=== PATIENT | female | born 2000 | race Caucasian/White ===

== ENCOUNTER 2021-12-20 19:58 | Inpatient (IN) ==
[2021-12-20 20:28] LABS: Basophils # (auto) 0.03 K/uL (0-0.2); Basophils % (auto) 0.3 %; Eosinophils # (auto) 0.04 K/uL (0-0.50); Eosinophils % (auto) 0.3 %; Immature Granulocytes # (auto) 0.04 K/uL (0.00-0.02); Immature Granulocytes % (auto) 0.3 %; Lymphocytes # (auto) 1.68 K/uL (1.2-3.4); Lymphocytes % (auto) 14.4 %; Mean Corpuscular Hemoglobin 26.7 pg (25.0-34.0); Mean Corpuscular Hgb Conc 32.9 g/dL (32.0-36.0); Mean Corpuscular Volume 81.2 fL (80.0-100.0); Monocytes # (auto) 1.15 K/uL (0.24-0.82); Monocytes % (auto) 9.9 %; Neutrophils # (auto) 8.73 K/uL (1.4-6.5); Neutrophils % (auto) 74.8 %; Platelet Count 341 K/uL (130-400); RDW Coefficient of Variation 13.3 % (11.5-14.5); RDW Standard Deviation 39.3 fL (36.4-46.3); White Blood Count 11.67 K/ul (4.8-10.8)
[2021-12-20] MEDS ORDERED: AMPICILLIN/SULBACTAM SOD 3,000 MG in 0.9 % SODIUM CHLORIDE 100 ML IV STA (20:28)
[2021-12-20] MEDS ORDERED: SODIUM CHLORIDE 0.9% 1000ML 2,000 ML IV ONE (20:28)
[2021-12-20] MEDS ORDERED: KETOROLAC TROMETHAMINE 15 MG/ML VIAL IV ONE (20:28)
[2021-12-20] MEDS ORDERED: dexAMETHasone**PF** 10 MG/ML VIAL IV ONE (20:29)
--- NOTE | 2021-12-20 20:33 | Emergency Department Note ---
Impression & Plan Dental caries, Dental abscess, Cellulitis of face, Swollen throat ED Provider Note NAME: ELIUD SMITH AGE: 21 SEX: U : 2000 ARRIVES VIA: Walk-In INFORMANT: Patient ED PROVIDER(S): Stephane Keller DO CHIEF COMPLAINT: left facial swelling HPI: Patient is a 21-year-old female who presents the ER for left lower jaw pain. This started 3 days ago. She had multiple dental infections but notes that this significantly worse. She was at [facility] yesterday and placed on penicillin. She has been taking that but the swelling has been getting worse. She saw dentist today who encouraged her to continue taking the antibiotics and set her up for an appointment in several weeks to have the teeth removed. Denies any fevers. Feels as though she has some swelling under the neck. No headache or change in vision. Pain is worse with palpation, eating, and drinking. It is an 8 out of 10. She admits to mild upset stomach secondary to NSAIDs that she is taking. No dysuria, urgency, or frequency. No other exacerbating or remitting factors. ROS: See above HPI for pertinent positives & negatives. A total of 10 systems reviewed and were otherwise negative. PAST MEDICAL HISTORY:See Below PAST SURGICAL HISTORY:See Below FAMILY HISTORY:See Below SOCIAL HISTORY:See Below HOME MEDICATIONS:See Below ALLERGIES:See Below VITALS:See Below PHYSICAL EXAMINATION: GENERAL: Sitting up in bed, alert, mild distress tearful EYE EXAM: normal conjunctiva. PERRL and EOM's grossly intact. OROPHARYNX: no exudate, no erythema, swelling of the left lower jaw from angle of the mandible anteriorly and tracking slightly under the jaw. Acute tenderness. No swelling under the tongue. NECK: supple, no nuchal rigidity, no adenopathy, non-tender LUNGS: Clear to auscultation. Normal chest wall mechanics HEART: no murmurs, S1 normal and S2 normal ABDOMEN: abdomen soft, non-tender, normo-active bowel sounds, no masses, no rebound or guarding. UPPER EXTREMITIES: upper extremities are grossly normal. LOWER EXTREMITIES: No pitting edema. NEURO EXAM: Normal sensorium, cranial nerves II-XII grossly intact, normal speech, no gross weakness of arms, no gross weakness of legs. MEDICAL DECISION MAKING: Patient is a 19-year-old female who presents ER for left dental/facial pain with swelling. IV was established blood work was obtained. Labs show mild leukocytosis 11,000. No significant anemia. BMP along LFTs bilirubin was unremarkable. COVID was negative. CT of the face shows facial cellulitis with a periapical abscess in the tooth. Patient has been on antibiotics. Swelling is getting worse. It is tracking down to the neck. CT. Patient was given steroids, IV fluids, IV Toradol as well as IV Unasyn. She was updated bedside. Discussed with Dr. Marco Taylor for further evaluation and admission. Triage Nursing notes reviewed. Limited review of prior medical records performed Vital Signs: reviewed and remarkable for no significant abnormalities Differential diagnosis: Differential diagnoses includes but is not limited to dental fracture, dental c arries, and dental abscess. ER treatment provided: See below Diagnostics interpreted by me: ECG: none Cardiac Monitoring: An order was placed for continuous cardiac monitoring. The monitor shows a rate of 101 with sinus rhythm. Laboratory studies: As stated above and show below. Imaging studies: CT of the face as described above Consultation(s): Discussed with Marco Taylor for further evaluation Procedures: none Critical Care: None Past Med/Surg History Social History Smoking Status: Current every day smoker Tobacco Type: Cigarettes and E-cigarettes / Vaping Preferred Language: Welsh Feels Safe at Home: Yes Allergies Allergies Allergy/AdvReac Type Severity Reaction Status Date / Time No Known Allergies Allergy Unverified 12/20/21 22:10 Home Meds Home Medications Medication Instructions Recorded Confirmed cholecalciferol (vitamin D3) 25 0 mcg PO DAILY 12/20/21 12/20/21 mcg (1,000 unit) capsule (Vitamin D3) ferrous sulfate 325 mg (65 mg 0 mg PO DAILY 12/20/21 12/20/21 iron) tablet (iron) magnesium 200 mg tablet 0 mg PO DAILY 12/20/21 12/20/21 naproxen sodium 550 mg tablet 550 mg PO BID PRN Pain 12/20/21 12/20/21 penicillin V potassium 500 mg 500 mg PO TID 12/20/21 12/20/21 tablet sertraline 50 mg tablet (Zoloft) 50 mg PO DAILY 12/20/21 12/20/21 zinc 25 mg tablet 0 mg PO DAILY 12/20/21 12/20/21 Results & Data (ED) Vital Signs Vital Signs - 24 hr 12/20/21 20:03 12/20/21 21:10 12/20/21 23:02 Temperature 37.1 C Temperature Source Temporal Artery Scan Pulse Rate 142 Pulse Rate [Finger] 95 H 101 H Respiratory Rate 20 18 20 Respiratory Effort / Characteristics Non-Labored Spontaneous Non-Labored Spontaneous Non-Labored Spontaneous Respiratory Depth Normal Normal Normal Blood Pressure 135/91 Blood Pressure [Left Arm] 112/73 117/79 Blood Pressure Mean 105 Blood Pressure Mean [Left Arm] 86 91 Blood Pressure Position [Left Arm] Sitting Pulse Oximetry 97 98 97 Oxygen Delivery Method Room Air Room Air Room Air Sepsis Recent Fever Within 48 Hours Yes Sepsis New/Unexplained Change in Mental Status N/A Sepsis Action Taken by Nursing No Action Required Laboratory Data Result diagrams: 12/20/21 20:13 12/20/21 20:13 Lab Results 12/20/21 12/20/21 12/20/21 Range/Units 20:13 20:13 22:14 WBC 11.67 H (4.8-10.8) K/ul RBC 4.42 (3.93-6.08) M/uL Hgb 11.8 L (12.0-18.0) g/dl Hct 35.9 (34.1-51.0) % MCV 81.2 (80.0-100.0) fL MCH 26.7 (25.0-34.0) pg MCHC 32.9 (32.0-36.0) g/dL RDW Std Deviation 39.3 (36.4-46.3) fL RDW Coeff of [place] 13.3 (11.5-14.5) % Plt Count 341 (130-400) K/uL MPV 9.8 (9.4-12.4) fL Immature Gran % (Auto) 0.3 % Neut % (Auto) 74.8 % Lymph % (Auto) 14.4 % [place] % (Auto) 9.9 % Eos % (Auto) 0.3 % Baso % (Auto) 0.3 % Neut # (Auto) 8.73 H (1.4-6.5) K/uL Lymph # (Auto) 1.68 (1.2-3.4) K/uL [place] # (Auto) 1.15 H (0.24-0.82) K/uL Eos # (Auto) 0.04 (0-0.50) K/uL Baso # (Auto) 0.03 (0-0.2) K/uL Immature Gran # (Auto) 0.04 H (0.00-0.02) K/uL Sodium 135 L (136-145) mmol/L Potassium 3.9 (3.5-5.1) mmol/L Chloride 104 (98-107) mmol/L Carbon Dioxide 21 (21-32) mmol/L Anion Gap 10 (3-11) BUN 9 (6-23) mg/dl Creatinine 0.66 (0.6-1.2) mg/dl Est Cr Clr Drug Dosing 130.8 ml/min Est GFR ( Amer) 145.3 ml/min Est GFR (Non-Af Amer) 125.4 ml/min BUN/Creatinine Ratio 13.6 (10-20) Glucose 116 H (70-99(Fasting)) mg/dl Calcium 9.5 (8.5-10.1) mg/dl Total Bilirubin 0.5 (0.2-1.0) mg/dl AST 13 (13-39) U/L ALT 13 (7-52) U/L Alkaline Phosphatase 63 (34-104) U/L Total Protein 8.2 (6.0-8.3) gm/dl Albumin 4.5 (3.4-5.0) gm/dl Globulin 3.7 (2.5-4.0) gm/dl Albumin/Globulin Ratio 1.2 (0.9-2) SARS-CoV-2, RNA, NAAT NEGATIVE (NEGATIVE) Administered Medications Discontinued Medications Dexamethasone Sodium Phosphate (DexamethasonePf 10 Mg/Ml Vial) 10 mg IV NOW ONE Stop: 12/20/21 20:30 Last Admin: 12/20/21 20:36 Dose: 10 mg Documented By: DELROY Sodium Chloride (Nss 1000ml) 2,000 mls @ 999 mls/hr IV .Q2H1M ONE Stop: 12/20/21 22:28 Last Infusion: 12/20/21 23:04 Dose: 0 mls/hr Documented By: Admin: 12/20/21 20:35 Dose: 999 mls/hr Documented By: DELROY Ampicillin Sodium/Sulbactam Sodium 3,000 mg/ Sodium Chloride 108 mls @ 200 mls/hr IV NOW STA; Protocol Stop: 12/20/21 21:00 Last Infusion: 12/20/21 21:20 Dose: 0 mls/hr Documented By: Admin: 12/20/21 20:51 Dose: 200 mls/hr Documented By: DELROY Ioversol (Optiray 350 100ml) 83 ml IV ONCE ONE Stop: 12/20/21 20:53 Last Admin: 12/20/21 20:52 Dose: 83 ml Documented By: JUAN CARLOS Ketorolac Tromethamine (Ketorolac Tromethamine 15 Mg/Ml Vial) 15 mg IV NOW ONE Stop: 12/20/21 20:29 Last Admin: 12/20/21 20:36 Dose: 15 mg Documented By: DELROY Imaging Data Radiologist's Impression: Soft Tissue Neck CT 12/20/21 20:28 CT SCAN OF THE NECK WITH IV CONTRAST CLINICAL HISTORY: Left facial pain radiating into the neck. Jaw swelling. COMPARISON STUDY: No priors. TECHNIQUE: Following the IV administration of 83 cc of Optiray 350, CT scan of the soft tissues of the neck was performed from the skull base to the upper chest. Images are reviewed in the axial, sagittal, and coronal planes. IV contrast was administered without complication. A dose lowering technique was utilized adhering to the principles of ALARA. CT DOSE: 552.59 mGy.cm FINDINGS: Pharynx: The nasopharynx, oropharynx, and laryngeal pharynx are normal in appe arance. The pharyngeal airway is widely patent. There is no evidence of mass lesion. The vocal cords are symmetric. The parapharyngeal fat is well maintained. The prevertebral/retropharyngeal soft tissues are within normal limits. The epiglottis is normal. Lymphadenopathy: Prominent left cervical chain lymph nodes are likely reactive Thyroid: Normal in size and attenuation. Salivary glands: The parotid and submandibular glands are within normal limits. Brain parenchyma: The visualized brain parenchyma at the skull base is normal in appearance. Vascular structures: Unremarkable. Skeletal structures: Imaged portions of the calvarium at the skull base are within normal limits. The cervical spine appears intact. Sinuses and mastoids: The paranasal sinuses are clear. The mastoid air cells are well pneumatized. Orbits: The bony limits are intact. Orbital contents are normal as visualized. Lung apices: Visualized apical lung parenchyma is clear. Dentition: There are large dental caries involving the bilateral mandibular molars. A large apical lucency is seen involving the most posterior left mandibular molar. There is significant superficial and deep soft tissue inflammation seen overlying the left aspect of the mandible consistent with cellulitis. This extends inferiorly into the upper neck. No organized fluid collection is seen to indicate abscess. IMPRESSION: 1. Periodontal disease as above. Follow-up with dentistry is recommended. 2. There is evidence of left facial cellulitis. No organized fluid collection is seen to indicate abscess. 3. Prominent left cervical chain lymph nodes are likely reactive. ACT 112: Negative or not required by law. Electronically signed by: Fahad Wren M.D. 12/20/2021 9:04 PM Discharge Plan Visit Data Chief Complaint: Dental/Oral Stated Complaint: ABCESS IN MOUTH ED Provider: Stephane Keller Discharge Problem: Dental caries, Dental abscess, Cellulitis of face, Swollen throat Forms Stand Alone Forms: [facility] Prescriptions Prescriptions: No Action penicillin V potassium 500 mg tablet 500 mg PO TID naproxen sodium 550 mg tablet 550 mg PO BID PRN (Reason: Pain) ferrous sulfate [iron] 325 mg (65 mg iron) Tablet 0 mg PO DAILY zinc 25 mg Tablet 0 mg PO DAILY sertraline [Zoloft] 50 mg Tablet 50 mg PO DAILY cholecalciferol (vitamin D3) [Vitamin D3] 25 mcg (1,000 unit) Capsule 0 mcg PO DAILY magnesium 200 mg Tablet 0 mg PO DAILY Referrals Referrals: PCP,NO [Physician] -
[2021-12-20 20:47] LABS: Albumin Globulin Ratio 1.2 (0.9-2); Albumin Level 4.5 gm/dl (3.4-5.0); BUN Creatinine Ratio 13.6 (10-20); Bilirubin,Total 0.5 mg/dl (0.2-1.0); Calcium 9.5 mg/dl (8.5-10.1); Creatinine Clr Calc Pharmacy 130.8 ml/min; Est GFR (African American) 145.3 ml/min; Est GFR (Non-African American) 125.4 ml/min; Globulin 3.7 gm/dl (2.5-4.0); Potassium 3.9 mmol/L (3.5-5.1); Total Protein 8.2 gm/dl (6.0-8.3)
[2021-12-20] MEDS ORDERED: OPTIRAY 350 100ml IV ONE (20:52)
--- NOTE | 2021-12-20 21:07 | CT Scan Report ---
CT SCAN OF THE NECK WITH IV CONTRAST CLINICAL HISTORY: Left facial pain radiating into the neck. Jaw swelling. COMPARISON STUDY: No priors. TECHNIQUE: Following the IV administration of 83 cc of Optiray 350, CT scan of the soft tissues of th e neck was performed from the skull base to the upper chest. Images are reviewed in the axial, sagitt al, and coronal planes. IV contrast was administered without complication. A dose lowering techniqu e was utilized adhering to the principles of ALARA. CT DOSE: 552.59 mGy.cm FINDINGS: Pharynx: The nasopharynx, oropharynx, and laryngeal pharynx are normal in appearance. The pharyngeal airway is widely patent. There is no evidence of mass lesion. The vocal cords are symmetric. The para pharyngeal fat is well maintained. The prevertebral/retropharyngeal soft tissues are within normal li mits. The epiglottis is normal. Lymphadenopathy: Prominent left cervical chain lymph nodes are likely reactive Thyroid: Normal in size and attenuation. Salivary glands: The parotid and submandibular glands are within normal limits. Brain parenchyma: The visualized brain parenchyma at the skull base is normal in appearance. Vascular structures: Unremarkable. Skeletal structures: Imaged portions of the calvarium at the skull base are within normal limits. The cervical spine appears intact. Sinuses and mastoids: The paranasal sinuses are clear. The mastoid air cells are well pneumatized. Orbits: The bony limits are intact. Orbital contents are normal as visualized. Lung apices: Visualized apical lung parenchyma is clear. Dentition: There are large dental caries involving the bilateral mandibular molars. A large apical cency is seen involving the most posterior left mandibular molar. There is significant superficial an d deep soft tissue inflammation seen overlying the left aspect of the mandible consistent with cellul itis. This extends inferiorly into the upper neck. No organized fluid collection is seen to indicate abscess. IMPRESSION: 1. Periodontal disease as above. Follow-up with dentistry is recommended. 2. There is evidence of left facial cellulitis. No organized fluid collection is seen to indicate abs cess. 3. Prominent left cervical chain lymph nodes are likely reactive. ACT 112: Negative or not required by law. Electronically signed by: Fahad Wren M.D. 12/20/2021 9:04 PM
--- NOTE | 2021-12-20 23:38 | History & Physical Report ---
Date of Service December 20, 2021 Assessment & Plan (1) Cellulitis of face: Plan: 21 y/o female w/ self-reported PMHx of IBS, mild autism spectrum disorder, anxiety, and enamel hypoplasia who presents with left lower tooth infection w/ resultant facial cellulitis. - continue IV unasyn - NPO. Maintenance IV fluids - s/p 1 dose of Decadron; will not continue - consult OMFS - IV tylenol for pain, avoid nsaids (2) Dental caries: Plan: - outpatient dental f/u recommended (3) Anxiety: Plan: - hold home Zoloft while NPO (4) Epigastric abdominal pain: Plan: - likely 2/2 max dose nsaids on empty stomach x several days - given short duration of the use, less likely from ulcer - IV Protonix 40 daily Plan NPO. Maintenance fluids. scds full code med/surg History of Present Illness Chief Complaint: left facial swelling and pain Primary Care Provider: [facility] [place] 21 y/o female w/ self-reported PMHx of IBS, mild autism spectrum disorder, anxiety, and enamel hypoplasia who presents with left lower jaw pain. She has had poor dental hygiene most of her life, but has started seeing the hygeinist in the past 2 years. She previously did not floss or brush her teeth regularly, but has in the past year. She states that she is from the and went through the public dental system and due to delays has not yet had her dental problems treated.. She has had 2 prior infections in the same left lower posterior tooth and has been on waitlist for surgery. She states that her wisdom teeth are also impacted. Her acute symptoms of jaw and dental pain of that tooth started 3 days ago. She saw [facility] and [facility] this morning and was prescribed penicillin. She was told there might be possible abscess. Her symptoms significantly worsened this afternoon so she went to the ED. She has had more notable subjective fever (had milder on previous days) and odynophagia today. Denies issues w/ secretions. She has been taking max dose tylenol and ibuprofen (3600mg daily) for the past 3 days. She has also developed some epigastric abd pain that she attributes to taking the nsaids on an empty stomach. ED course: Unasyn, dexamethasone 10mg IV, toradol 15mg IV. NSS 2L. wbc 11.67. Na 135. covid neg. ct soft tissue neck showing peridontal disease, left facial cellulitis (w/o abscess) and prominent left cervical chain lymph nodes . Vitals reviewed. HR 101. afebrile. Allergies Allergy/AdvReac Type Severity Reaction Status Date / Time No Known Allergies Allergy Unverified 12/20/21 22:10 Home Medications Medication Instructions Recorded Confirmed Type cholecalciferol (vitamin D3) 25 0 mcg PO DAILY 12/20/21 12/20/21 History mcg (1,000 unit) capsule (Vitamin D3) ferrous sulfate 325 mg (65 mg 0 mg PO DAILY 12/20/21 12/20/21 History iron) tablet (iron) magnesium 200 mg tablet 0 mg PO DAILY 12/20/21 12/20/21 History naproxen sodium 550 mg tablet 550 mg PO BID PRN Pain 12/20/21 12/20/21 History penicillin V potassium 500 mg 500 mg PO TID 12/20/21 12/20/21 History tablet sertraline 50 mg tablet (Zoloft) 50 mg PO DAILY 12/20/21 12/20/21 History zinc 25 mg tablet 0 mg PO DAILY 12/20/21 12/20/21 History Past Med/Surg History Social History Smoking Status: Never smoker Tobacco Type: Cigarettes and E-cigarettes / Vaping Second Hand Exposure: No; Do You Dip or Chew Tobacco: No; Hx Alcohol Use: Yes Alcohol type: beer and wine Hx Substance Use: No Preferred Language: Maltese Communication Ability: Effective 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 NAD. Cooperative. Conversing. HEENT: Atraumatic, normocephalic. EOMI. Left lower backmost tooth appears decayed. Poor dentition; though grossly, other teeth did not appear poor in health. + left jaw swelling, mild ttp. Pulm: CTAB. -wheezes, -rales, -rhonchi. No respiratory distress. Cardiac: Mildly tachycardic rate, -mrg. Abdominal: Nondistended, soft. Integ: Warm, dry, intact. Results & Data Results & Data ([facility]) Vital Signs (Past 12 Hours) Vital Signs Temp Pulse Pulse Resp BP BP Pulse Ox 12/20/21 23:02 101 H 20 117/79 97 12/20/21 21:10 95 H 18 112/73 98 12/20/21 20:03 37.1 C 142 20 135/91 97 O2 Del Method 12/20/21 23:02 Room Air 12/20/21 21:10 Room Air 12/20/21 20:03 Room Air Laboratory Results Cardiac Enzymes 12/20/21 Range/Units 20:13 AST 13 (13-39) U/L CBC 12/20/21 Range/Units 20:13 WBC 11.67 H (4.8-10.8) K/ul RBC 4.42 (3.93-6.08) M/uL Hgb 11.8 L (12.0-18.0) g/dl Hct 35.9 (34.1-51.0) % Plt Count 341 (130-400) K/uL Neut # (Auto) 8.73 H (1.4-6.5) K/uL Lymph # (Auto) 1.68 (1.2-3.4) K/uL [place] # (Auto) 1.15 H (0.24-0.82) K/uL Eos # (Auto) 0.04 (0-0.50) K/uL Baso # (Auto) 0.03 (0-0.2) K/uL Comprehensive Metabolic Panel 12/20/21 Range/Units 20:13 Sodium 135 L (136-145) mmol/L Potassium 3.9 (3.5-5.1) mmol/L Chloride 104 (98-107) mmol/L Carbon Dioxide 21 (21-32) mmol/L BUN 9 (6-23) mg/dl Creatinine 0.66 (0.6-1.2) mg/dl Glucose 116 H (70-99(Fasting)) mg/dl Calcium 9.5 (8.5-10.1) mg/dl AST 13 (13-39) U/L ALT 13 (7-52) U/L Alkaline Phosphatase 63 (34-104) U/L Total Protein 8.2 (6.0-8.3) gm/dl Albumin 4.5 (3.4-5.0) gm/dl Intake and Output 12/20/21 12/20/21 12/21/21 14:59 22:59 06:59 Intake Total 2107 Balance 2107 Intake: IV 108 2107 Ampicillin/Sulbactam Sod 3,000 108 / 108 mg In 0.9 % Sodium Chloride 100 ml @ 200 mls/hr IV NOW STA Rx# :[id number] Sodium Chloride 0.9% 1000ML 2, 2000 / 1999 000 ml @ 999 mls/hr IV .Q2H1M ONE Rx#:[id number] Other: Weight 83.2 kg Weight Measurement Method Chair Scale Patient Weight 12/21/21 06:59 Weight 83.2 kg Diagnostic Findings Soft Tissue Neck CT 12/20/21 20:28 CT SCAN OF THE NECK WITH IV CONTRAST CLINICAL HISTORY: Left facial pain radiating into the neck. Jaw swelling. COMPARISON STUDY: No priors. TECHNIQUE: Following the IV administration of 83 cc of Optiray 350, CT scan of the soft tissues of the neck was performed from the skull base to the upper chest. Images are reviewed in the axial, sagittal, and coronal planes. IV cont rast was administered without complication. A dose lowering technique was utilized adhering to the principles of ALARA. CT DOSE: 552.59 mGy.cm FINDINGS: Pharynx: The nasopharynx, oropharynx, and laryngeal pharynx are normal in appearance. The pharyngeal airway is widely patent. There is no evidence of mass lesion. The vocal cords are symmetric. The parapharyngeal fat is well maintained. The prevertebral/retropharyngeal soft tissues are within normal limits. The epiglottis is normal. Lymphadenopathy: Prominent left cervical chain lymph nodes are likely reactive Thyroid: Normal in size and attenuation. Salivary glands: The parotid and submandibular glands are within normal limits. Brain parenchyma: The visualized brain parenchyma at the skull base is normal in appearance. Vascular structures: Unremarkable. Skeletal structures: Imaged portions of the calvarium at the skull base are within normal limits. The cervical spine appears intact. Sinuses and mastoids: The paranasal sinuses are clear. The mastoid air cells are well pneumatized. Orbits: The bony limits are intact. Orbital contents are normal as visualized. Lung apices: Visualized apical lung parenchyma is clear. Dentition: There are large dental caries involving the bilateral mandibular molars. A large apical lucency is seen involving the most posterior left mandibular molar. There is significant superficial and deep soft tissue inflammation seen overlying the left aspect of the mandible consistent with cellulitis. This extends inferiorly into the upper neck. No organized fluid collection is seen to indicate abscess. IMPRESSION: 1. Periodontal disease as above. Follow-up with dentistry is recommended. 2. There is evidence of left facial cellulitis. No organized fluid collection is seen to indicate abscess. 3. Prominent left cervical chain lymph nodes are likely reactive. ACT 112: Negative or not required by law. Electronically signed by: Fahad Wren M.D. 12/20/2021 9:04 PM Code Status & VTE Plan Code Status full VTE Prophylaxis Plan VTE Prophylaxis will be ordered: Yes Supervising Physician Co-Signing Physician Notes Attending addendum: I have physically seen this patient, have supervised the medical residents activities, and agree with the H&P unless as otherwise noted. Assessment and Plan: Cellulitis of face/periodontal disease- Continue Unasyn 3 g IV every 6 hours Status post dexamethasone 10 mg IV from the ED Acetaminophen with 1000 milligrams IV every 8 hours as needed for mild pain or fever Will need follow-up with maxillofacial surgery Remaining orders and notations as noted Resident Activity Tracking Resident Involvement: Resident Care Provided Care Provided: Adult Hospital Medicine
[2021-12-21] MEDS ORDERED: ACETAMINOPHEN 1,000 MG/100 ML VIAL IV PRN (01:06)
[2021-12-21] MEDS ORDERED: ONDANSETRON INJ 2 MG/ML 2 ML VIAL IV PRN (01:06)
[2021-12-21] MEDS: SODIUM CHLORIDE 0.9% 1000ML 1,000 ML IV SCH ×3 (01:15→16:42)
[2021-12-21] MEDS: PANTOprazole 40 MG in SYRINGE 0 ML IV SCH (02:00)
[2021-12-21] MEDS: AMPICILLIN/SULBACTAM SOD 3,000 MG in 0.9 % SODIUM CHLORIDE 100 ML IV SCH ×4 (03:02→21:33)
[2021-12-21 08:02] LABS: Basophils # (auto) 0.01 K/uL (0-0.2); Basophils % (auto) 0.1 %; Hematocrit (blood only) 34.2 % (34.1-44.9); Hemoglobin 11.2 g/dl (12.0-16.0); Immature Granulocytes # (auto) 0.07 K/uL (0.00-0.02); Immature Granulocytes % (auto) 0.7 %; Lymphocytes % (auto) 8.9 %; Mean Corpuscular Hemoglobin 26.9 pg (25.0-34.0); Mean Corpuscular Hgb Conc 32.7 g/dL (32.0-36.0); Mean Platelet Volume 10.2 fL (9.4-12.3); Monocytes # (auto) 0.32 K/uL (0.24-0.82); Monocytes % (auto) 3.2 %; Neutrophils # (auto) 8.81 K/uL (1.4-6.5); Neutrophils % (auto) 87.1 %; Platelet Count 328 K/uL (130-400); RDW Coefficient of Variation 13.5 % (11.5-14.5); RDW Standard Deviation 40.2 fL (36.4-46.3); Red Blood Count 4.17 M/uL (3.93-5.22); White Blood Count 10.11 K/ul (4.8-10.8)
[2021-12-21 08:35] LABS: Alanine Aminotransferase 13 U/L (7-52); Albumin Globulin Ratio 1.1 (0.9-2); Albumin Level 3.9 gm/dl (3.4-5.0); Alkaline Phosphatase 54 U/L (34-104); Anion Gap 7 (3-11); Aspartate Aminotransferase 12 U/L (13-39); BUN Creatinine Ratio 17.3 (10-20); Bilirubin,Total 0.4 mg/dl (0.2-1.0); Blood Urea Nitrogen 9 mg/dl (6-23); Calcium 9.1 mg/dl (8.5-10.1); Carbon Dioxide 23 mmol/L (21-32); Chloride 109 mmol/L (98-107); Creatinine Clr Calc Pharmacy 166.4 ml/min; Est GFR (African American) > 150.0 ml/min; Est GFR (Non-African American) 135.6 ml/min; Globulin 3.5 gm/dl (2.5-4.0); Glucose 110 mg/dl (70-99(Fasting)); Magnesium 1.9 mg/dl (1.7-2.4); Sodium 139 mmol/L (136-145); Total Protein 7.4 gm/dl (6.0-8.3)
--- NOTE | 2021-12-21 10:40 | Hospitalist Progress Note ---
Date of Service December 21, 2021 Assessment & Plan (1) Cellulitis of face: Plan: Attending: Dr. Flanagan Impression: 21 y/o female w/ self-reported PMHx of IBS, mild autism spectrum disorder, anxiety, and enamel hypoplasia who presents with left lower tooth infection w/ resultant facial cellulitis. - continue IV unasyn for another day. Anticipate discharge tomorrow with extraction of teeth per outside dentist in about 2 weeks -Advance diet as tolerated - s/p 1 dose of Decadron on admission. -Seen by Dr. Almeida from oromaxillary facial surgery. Offered option of extraction in the OR. Patient elects to follow through with outpatient extraction. -P.o. Tylenol for pain. (2) Dental caries: Plan: - outpatient dental f/u as previously established (3) Anxiety: Plan: - Patient reports that she has held Zoloft for several days due to pain and difficulty swallowing - Will resume Zoloft 50 mg p.o. daily today (4) Epigastric abdominal pain: Plan: - Resolved - likely 2/2 max dose nsaids on empty stomach x several days - given short duration of the use, less likely from ulcer - IV Protonix 40 daily Plan Resume diet as tolerated scds full code Anticipate discharge tomorrow on oral antibiotics Follow-up with outpatient dentistry as previous arranged for tooth extraction Admission and Anticipated Discharge Date Admission Date: December 20, 2021 Subjective Attending: Dr. Flanagan This is a 21-year-old female that presents with facial cellulitis possibly secondary to left lower tooth infection. She was seen by [facility] yesterday morning and was prescribed penicillin. Pain worsened significantly and patient presented to the emergency department for evaluation. Patient was taking 2400 mg of Tylenol as well as 3600 mg of ibuprofen daily for the past 3 days and now presents with gastritis. White count slightly elevated 11.67 yesterday and now 10.11. Electrolytes are balanced. There is no procalcitonin on record. CT scan of the soft tissue of the neck reveals periodontal disease with no evidence of abscess. There is also facial cellulitis on the left with no organized fluid collection. Prominent left cervical chain lymph nodes are likely reactive. Oral surgery has been consulted and comment is pending. Patient feels much better today. Edema is improving. No evidence of erythema on the face. Currently doing well with Unasyn. No fever or chills. Able swallow today without difficulty. Requesting advance diet Review of Systems Review of Systems: A total of 10 systems was reviewed and is negative other than as listed in the HPI Physical Exam Physical Exam: GENERAL : No acute distress EYES: No icterus, gaze conjugate NOSE: No evidence of epistaxis MOUTH: No lesions or candidiasis. Still some tenderness to the left cheek. NECK: Supple LUNGS: CTA B/L, no wheezes, rales or rhonchi HEART: Regular, rate controlled ABDOMEN: Soft, NT, ND, BS Present EXTREMITIES: No LE edema, pedal pulses intact NEURO: A&OX3 Results & Data Results & Data ([facility]) Vital Signs (Past 12 Hours) Vital Signs Temp Pulse Resp BP Pulse Ox O2 Del Method 12/21/21 09:10 Room Air 12/21/21 08:00 36.9 C 80 18 119/81 97 Room Air 12/21/21 01:04 Room Air 12/21/21 01:04 37.1 C 98 H 20 119/78 96 Room Air 12/21/21 00:29 98 H 20 120/83 96 Room Air 12/20/21 23:02 101 H 20 117/79 97 Room Air Critical Care Results & Data Vital Signs (Past 12 Hours) Vital Signs Temp Pulse Resp BP Pulse Ox O2 Del Method 12/21/21 09:10 Room Air 12/21/21 08:00 36.9 C 80 18 119/81 97 Room Air 12/21/21 01:04 Room Air 12/21/21 01:04 37.1 C 98 H 20 119/78 96 Room Air 12/21/21 00:29 98 H 20 120/83 96 Room Air 12/20/21 23:02 101 H 20 117/79 97 Room Air Lab & Micro Results (Past 24 Hours) RBC 4.17 M/uL (3.93-5.22) 12/21/21 WBC 10.11 K/ul (4.8-10.8) 12/21/21 Hgb 11.2 g/dl (12.0-16.0) L 12/21/21 Hct 34.2 % (34.1-44.9) 12/21/21 MCV 82.0 fL (80.0-100.0) 12/21/21 MCH 26.9 pg (25.0-34.0) 12/21/21 MCHC 32.7 g/dL (32.0-36.0) 12/21/21 RDW Standard Deviation 40.2 fL (36.4-46.3) 12/21/21 RDW Coefficient of Variation 13.5 % (11.5-14.5) 12/21/21 Plt Count 328 K/uL (130-400) 12/21/21 MPV 10.2 fL (9.4-12.3) 12/21/21 Neutrophils (%) (Auto) 87.1 % 12/21/21 Lymphocytes (%) (Auto) 8.9 % 12/21/21 Monocytes # (Auto) 0.32 K/uL (0.24-0.82) 12/21/21 Eosinophils # (Auto) 0.00 K/uL (0-0.50) 12/21/21 Immature Granulocyte % (Auto) 0.7 % 12/21/21 Neutrophils # (Auto) 8.81 K/uL (1.4-6.5) H 12/21/21 Lymphocytes # (Auto) 0.90 K/uL (1.2-3.4) L 12/21/21 Monocytes # (Auto) 0.32 K/uL (0.24-0.82) 12/21/21 Eosinophils # (Auto) 0.00 K/uL (0-0.50) 12/21/21 Basophils # (Auto) 0.01 K/uL (0-0.2) 12/21/21 Immature Granulocyte # (Auto) 0.07 K/uL (0.00-0.02) H 12/21 Na 139 mmol/L (136-145) 12/21/21 K 4.0 mmol/L (3.5-5.1) 12/21/21 Cl 109 mmol/L (98-107) H 12/21/21 CO2 23 mmol/L (21-32) 12/21/21 Anion Gap 7 (3-11) 12/21/21 BUN 9 mg/dl (6-23) 12/21/21 Creatinine 0.52 mg/dl (0.6-1.2) L 12/21/21 Estimated GFR ( Amer) > 150.0 ml/min 12/21/21 Estimated GFR (Non-Af Amer) 135.6 ml/min 12/21/21 BUN/Creatinine Ratio 17.3 (10-20) 12/21/21 Glu 110 mg/dl (70-99(Fasting)) H 12/21/21 Ca 9.1 mg/dl (8.5-10.1) 12/21/21 Total Bilirubin 0.4 mg/dl (0.2-1.0) 12/21/21 AST 12 U/L (13-39) L 12/21/21 ALT 13 U/L (7-52) 12/21/21 Alkaline Phosphatase 54 U/L (34-104) 12/21/21 TP 7.4 gm/dl (6.0-8.3) 12/21/21 Albumin 3.9 gm/dl (3.4-5.0) 12/21/21 Globulin 3.5 gm/dl (2.5-4.0) 12/21/21 Albumin/Globulin Ratio 1.1 (0.9-2) 12/21/21 Mg 1.9 mg/dl (1.7-2.4) 12/21/21 07:08 Calcium Level 9.1 mg/dl (8.5-10.1) 12/21/21 07:08 Diagnostic Findings (Past 24 Hours) Soft Tissue Neck CT 12/20/21 20:28 CT SCAN OF THE NECK WITH IV CONTRAST CLINICAL HISTORY: Left facial pain radiating into the neck. Jaw swelling. COMPARISON STUDY: No priors. TECHNIQUE: Following the IV administration of 83 cc of Optiray 350, CT scan of the soft tissues of the neck was performed from the skull base to the upper chest. Images are reviewed in the axial, sagittal, and coronal planes. IV contrast was administered without complication. A dose lowering technique was utilized adhering to the principles of ALARA. CT DOSE: 552.59 mGy.cm FINDINGS: Pharynx: The nasopharynx, oropharynx, and laryngeal pharynx are normal in appea davidson. The pharyngeal airway is widely patent. There is no evidence of mass lesion. The vocal cords are symmetric. The parapharyngeal fat is well maintained. The prevertebral/retropharyngeal soft tissues are within normal limits. The epiglottis is normal. Lymphadenopathy: Prominent left cervical chain lymph nodes are likely reactive Thyroid: Normal in size and attenuation. Salivary glands: The parotid and submandibular glands are within normal limits. Brain parenchyma: The visualized brain parenchyma at the skull base is normal in appearance. Vascular structures: Unremarkable. Skeletal structures: Imaged portions of the calvarium at the skull base are within normal limits. The cervical spine appears intact. Sinuses and mastoids: The paranasal sinuses are clear. The mastoid air cells are well pneumatized. Orbits: The bony limits are intact. Orbital contents are normal as visualized. Lung apices: Visualized apical lung parenchyma is clear. Dentition: There are large dental caries involving the bilateral mandibular molars. A large apical lucency is seen involving the most posterior left mandibular molar. There is significant superficial and deep soft tissue inflammation seen overlying the left aspect of the mandible consistent with cellulitis. This extends inferiorly into the upper neck. No organized fluid collection is seen to indicate abscess. IMPRESSION: 1. Periodontal disease as above. Follow-up with dentistry is recommended. 2. There is evidence of left facial cellulitis. No organized fluid collection is seen to indicate abscess. 3. Prominent left cervical chain lymph nodes are likely reactive. ACT 112: Negative or not required by law. Electronically signed by: Fahad Wren M.D. 12/20/2021 9:04 PM I & O Totals 24 Hours 12/20/21 12/21/21 12/22/21 06:59 06:59 06:59 Intake Total 2216 / 2216 1030.917 / 1030.917 Balance 2216 / 2216 1030.917 / 1030.917 Cumulative 12/20/21 19:58 thru 12/21/21 09:11 Intake Total 3246.917 Balance 3246.917 RT Ventilator Mngmt (Last Documented) Ventilator Ordered Settings Respiratory Rate 18 12/21/21 08:00 Ventilator - PT Measurements Respiratory Rate 18 PG Care Time/CCT Total # of Minutes Spent Total Time Spent with Patient: Total time spent is greater than 50% in coordination of care (as documented) at patient's floor/unit and/or counseling patient: Coding Level of Care Code 21994 Subseq Hosp Care Lvl 2 Diagnoses Cellulitis of face L03.211 Dental caries K02.9 Anxiety F41.9 Epigastric abdominal pain R10.13
--- NOTE | 2021-12-21 13:21 | Oral/Maxillofacial Consult ---
Date of Consultation December 21, 2021 Assessment & Plan (1) Dental caries: (2) Dental abscess: (3) Cellulitis of face: (4) Swollen throat: History of Present Illness Attending Physician: Stephane Flanagan, History of Present Illness Oral Maxillofacial Surgery Exam Present Complaint: I have pain/swelling/drainage from my infected teeth. Symptoms have been ongoing for a while. I was advised to get # 18 and 31 as well as my wisdom teeth removed in the past I have an appointment on Jan 05 for extraction of # [address] [facility] Oral Exam: Finding--Resolving infection left side, tender gingival tissue with deep pocket formation.Teeth are in an abnormal position and removal is clinical indicated for # 18 and 31 Imaging: CT scan IMPRESSION: 1. Periodontal disease as above. Follow-up with dentistry is recommended. 2. There is evidence of left facial cellulitis. No organized fluid collection is seen to indicate abscess. 3. Prominent left cervical chain lymph nodes are likely reactive. Soft tissue: floor of the mouth, tongue, hard/soft palate, posterior pharyngeal area all with in normal limits, no pathology or abnormal findings noted. No lesions noted that require follow up or Bx. Still some residual soft edema left submandibular area and slight amount right side Oral Care: Overall oral care is good except for # 18,31 Occlusion: Class I TMJ exam: No pop, clicking, pain, good ROM, No history of TMJ injury or dysfunction Periodontal exam: Healthy gingival tissue without evidence of periodontal pathology. Noted area surrounding the fractured and carious 18 and 31 Head/Neck exam: Neck is supple, FROM, Able to extend and flex neck w/o difficulty, no masses, no abnormalities, no airway issues, no evidence of sleep apnea. Treatment Plan: The IV antibiotics and hydration helped a great deal Kaiden is much better now. The swelling is resolving, pain well controlled, infection has responded to the IV antibiotics. I gave her 2 options 1)-extraction of 18 and 31 in OR 2)-keep the already established appointment at [facility] for extraction of the 2 teeth. Kaiden feel now that she has no pain, swelling resolving that she would prefer to be discharged on oral antibiotics and have [facility] remove the 2 teeth as planned for 2021. I reviewed the treatment plan and consent with the patient Understanding was expressed. Time was given for questions regarding the surgery, risks and post op care. Discussed alternative to treatment--procedure as planned. Regarding her wisdom teeth The wisdom teeth are impacted and in an abnormal position, removal is indicated and medically necessary. She will follow up with me regarding the wisdom teeth at her convenience. Blue can be discharged tomorrow on an oral antibiotic She has an appointment for the extractions at [facility] on She has my card and office information regarding her wisdom teeth. Overall Responded well to IV therapy OK for Discharge tomorrow with oral antibiotics Follow up and treatment in place. Allergies Allergy/AdvReac Type Severity Reaction Status Date / Time No Known Allergies Allergy Unverified 12/20/21 22:10 Home Medications Medication Instructions Recorded Confirmed Type cholecalciferol (vitamin D3) 25 0 mcg PO DAILY 12/20/21 12/20/21 History mcg (1,000 unit) capsule (Vitamin D3) ferrous sulfate 325 mg (65 mg 0 mg PO DAILY 12/20/21 12/20/21 History iron) tablet (iron) magnesium 200 mg tablet 0 mg PO DAILY 12/20/21 12/20/21 History naproxen sodium 550 mg tablet 550 mg PO BID PRN Pain 12/20/21 12/20/21 History penicillin V potassium 500 mg 500 mg PO TID 12/20/21 12/20/21 History tablet sertraline 50 mg tablet (Zoloft) 50 mg PO DAILY 12/20/21 12/20/21 History zinc 25 mg tablet 0 mg PO DAILY 12/20/21 12/20/21 History Patient History Social History Smoking Status: Never smoker Tobacco Type: Cigarettes and E-cigarettes / Vaping Second Hand Exposure: No; Do You Dip or Chew Tobacco: No; Hx Alcohol Use: Yes Alcohol type: beer and wine Hx Substance Use: No Preferred Language: Mohawk Communication Ability: Effective Robotics Mechanic Required: No Beliefs That Will Affect Care: None Current Living Situation: Other Current Living Situation Comment: lives w/ student roomates Feels Safe at Home: Yes Safety Concerns: Feels Safe At This Time Assistive Devices: Glasses Results & Data ([facility]) Vital Signs (Past 12 Hours) Vital Signs Temp Pulse Resp BP Pulse Ox O2 Del Method 12/21/21 09:10 Room Air 12/21/21 08:00 36.9 C 80 18 119/81 97 Room Air PG Care Time/CCT Total # of Minutes Spent Total Time Spent with Patient: Total time spent is greater than 50% in coordination of care (as documented) at patient's floor/unit and/or counseling patient: Coding Level of Care Code 04266 Inpt Consult Level 2 Diagnoses Dental caries K02.9 Dental abscess K04.7 Cellulitis of face L03.211 Swollen throat R22.1
[2021-12-21] MEDS: ACETAMINOPHEN 500 MG TAB PO PRN (18:21)
[2021-12-22] MEDS: AMPICILLIN/SULBACTAM SOD 3,000 MG in 0.9 % SODIUM CHLORIDE 100 ML IV SCH ×4 (02:00→20:04)
[2021-12-22] MEDS: ACETAMINOPHEN 500 MG TAB PO PRN ×3 (02:36→14:36)
--- NOTE | 2021-12-22 02:51 | Billing Data ---
Date of Service December 22, 2021 Coding Level of Care Code INT OBSERVATION CARE 70M LVL 3
[2021-12-22] MEDS: SERTRALINE HCL 50 MG TABLET PO SCH ×2 (04:33→08:13)
--- NOTE | 2021-12-22 10:49 | Hospitalist Progress Note ---
Date of Service December 22, 2021 Assessment & Plan (1) Cellulitis of face: Plan: 21 y/o female w/ self-reported PMHx of IBS, mild autism spectrum disorder, anxiety, and enamel hypoplasia who presents with left lower tooth infection w/ resultant facial cellulitis. - continue IV unasyn - Initially made NPO and ordered mIVF - s/p 1 dose of Decadron; not continued - consulted OM[facility] - seen by Dr. Almeida on 12/21, offered extraction but pt declined, diet ordered - IV tylenol for pain, avoid nsaids - This AM, pt reports worsening swelling, now after speaking to mother, is willing to have extraction - Spoke w/ Dr. Almeida and he will add her today for extraction, pt made full admit and NPO again (2) Dental caries: Plan: - as above (3) Anxiety: Plan: - hold home Zoloft while NPO (4) Epigastric abdominal pain: Plan: - likely 2/2 max dose nsaids on empty stomach x several days - given short duration of the use, less likely from ulcer - IV Protonix 40 daily Plan Admit, continue IV abx, for extraction today. Anticipate dc tomorrow on course of oral abx. Plan d/w Dr. Flanagan. Admission and Anticipated Discharge Date Admission Date: December 20, 2021 Subjective Patient seen on rounds this morning. She reports that she feels the swelling is worse than yesterday. No reported fevers. She is now contemplating having surgical extraction and would like to talk to her mom in more detail about it. She did eat about 75% of her breakfast this morning according to RN. Review of Systems Review of Systems: All systems reviewed and are unremarkable except as noted in HPI and below. Denies fever, chills, fatigue, headache, nasal congestion, sore throat, cough, chest pain, shortness of breath, palpitations, orthopnea, PND, abdominal pain, n/v/d, constipation, dysuria, hematuria, frequency, back pain, joint pain or swelling, easy bruising or bleeding, skin lesions or rashes. Physical Exam Physical Exam: GENERAL: 21 yo Well-developed, well-nourished. NAD. HENT: Moist mucous membranes. Approx 4 cm area of swelling and erythema on left side of mandible. TTP. Poor dentition. LUNGS: Clear to auscultation bilaterally. No accessory muscle use. No W/R/R. CARDIOVASCULAR: Regular rate and rhythm. ABDOMEN: Soft, non-tender and non-distended. BS normoactive x 4 quad. EXTREMITIES: No edema. Non-tender. Peripheral pulses +2/4. NEUROLOGIC: A&O x3. PSYCHIATRIC: Cooperative. Appropriate mood and affect. SKIN: Warm, dry, intact. No rashes or lesions. Results & Data Results & Data ([facility]) Vital Signs (Past 12 Hours) Vital Signs Temp Pulse Resp BP Pulse Ox O2 Del Method 12/22/21 07:00 Room Air 12/22/21 07:10 36.8 C 83 16 111/76 96 Room Air Laboratory Results No labs today PG Care Time/CCT Total # of Minutes Spent Total Time Spent with Patient: Total time spent is greater than 50% in coordination of care (as documented) at patient's floor/unit and/or counseling patient: Coding Level of Care Code 12332 Subseq Hosp Care Lvl 2 Diagnoses Cellulitis of face L03.211 Dental caries K02.9 Anxiety F41.9 Epigastric abdominal pain R10.13
[2021-12-22] MEDS: PANTOprazole 40 MG in SYRINGE 0 ML IV SCH (11:24)
--- NOTE | 2021-12-22 11:44 | Oral/Maxillofacial Progress Nt ---
Date of Service December 22, 2021 Assessment & Plan Admission and Anticipated Discharge Date Admission Date: December 22, 2021 Subjective Blue developed more swelling over last evening. She has more pain and looks like she will need the extraction of 18 possible 17 and 31 JT. I will also now need to drain the submandibular and buccal space abscess with the extractions. She had breakfast and we will need to wait 8 hours and plan the procedures under [place] later this afternoon. I reviewed the treatment plan Ext of 18 and 31 I&D left abscess and possible # 17 NPO Continue IV antibiotics Hopefully be able to D/C tomorrow after at least 24 hour post op IV antibiotics Plan procedure in OR today Consent signed Risks reviewed Results & Data ([facility]) Vital Signs (Past 12 Hours) Vital Signs Temp Pulse Resp BP Pulse Ox O2 Del Method 12/22/21 07:00 Room Air 12/22/21 07:10 36.8 C 83 16 111/76 96 Room Air PG Care Time/CCT Total # of Minutes Spent Total Time Spent with Patient: Total time spent is greater than 50% in coordination of care (as documented) at patient's floor/unit and/or counseling patient: Coding Level of Care Code None
--- NOTE | 2021-12-22 15:29 | Anesthesiology Consultation ---
Date of Service December 22, 2021 Assessment & Plan Chart Review Chart Review: Acceptable Risk for Surgery and Patient NOT seen in Pre Admission Testing Consults Requested none ASA ASA2 Proposed Anesthesia Anesthesia Type: General History Surgery Operation Date: 12/22/21 10:40 Proposed Procedures p Left Facial Infection Incisiona and Drainage - Rashaad Almeida DMD s 2 Tooth Extract - Rashaad Almeida DMD Height/Weight Height: 5 ft 1 in Weight: 83.6 kg Allergies Allergy/AdvReac Type Severity Reaction Status Date / Time No Known Allergies Allergy Unverified 12/20/21 22:10 Medications Home Medications Medication Instructions Recorded Confirmed Last Taken cholecalciferol (vitamin D3) 25 0 mcg PO DAILY 12/20/21 12/20/21 Unknown mcg (1,000 unit) capsule (Vitamin D3) ferrous sulfate 325 mg (65 mg 0 mg PO DAILY 12/20/21 12/20/21 Unknown iron) tablet (iron) magnesium 200 mg tablet 0 mg PO DAILY 12/20/21 12/20/21 Unknown naproxen sodium 550 mg tablet 550 mg PO BID PRN Pain 12/20/21 12/20/21 Unknown penicillin V potassium 500 mg 500 mg PO TID 12/20/21 12/20/21 12/20/21 13:00 tablet sertraline 50 mg tablet (Zoloft) 50 mg PO DAILY 12/20/21 12/20/21 Unknown zinc 25 mg tablet 0 mg PO DAILY 12/20/21 12/20/21 Unknown Active Medications Generic Name Dose Route Start Last Admin Trade Name Freq PRN Reason Stop Dose Admin Acetaminophen 1,000 mg 12/21/21 17:59 12/22/21 08:12 Acetaminophen 500 Mg Tab PO 01/20/22 17:58 1,000 mg Q6H PRN Administration Pain or Fever Ampicillin Sodium/Sulbactam 108 mls @ 200 mls/hr 12/21/21 03:00 12/22/21 15:06 Sodium 3,000 mg/ Sodium IV 12/28/21 02:59 Infused Chloride Q6H LAURIE Infusion Protocol Pantoprazole Sodium 40 mg/ 10 mls @ 5 mls/min 12/21/21 02:00 12/22/21 11:24 Syringe IV 01/20/22 01:59 5 mls/min DAILY@1100 LAURIE Administration Sertraline HCl 50 mg 12/21/21 16:30 12/22/21 08:13 Sertraline Hcl 50 Mg Tablet PO 01/20/22 16:29 50 mg DAILY LAURIE Administration NPO Date Last Intake of Fluids: 12/22/21 Time Last Intake of Fluids: 08:30 Date Last Intake of Solids: 12/22/21 Time Last Intake of Solids: 08:30 Past Medical History autism spectrum disorder;obesity;vapes;anxiety Exercise / Class Metabolic Activity II 4-5 Yardwork/Stairs/Walk up hill Past Anesthesia History No Hx of Anesthesia Complications and No Family Hx of Anesthesia Complications History of PONV No Hx of PONV and No Hx of Motion Sickness Social History Smoking Status: Never smoker tobacco type: e-cigarettes Do You Dip or Chew Tobacco: No Hx Alcohol Use: Yes Alcohol type: beer and wine alcohol intake frequency: holidays/special occasions only Hx Substance Use: No substance use type: does not use Physical Exam Vital Signs Last Vital Signs Temp 37 C 12/22/21 15:16 Pulse 76 12/22/21 15:16 Resp 18 12/22/21 15:16 BP 134/85 12/22/21 15:16 Pulse Ox 96 12/22/21 15:16 O2 Del Method 12/22/21 15:16 Testing Laboratory Results 12/21/21 07:08 12/21/21 07:08
[2021-12-22] MEDS ORDERED: LIDOCAINE/EPINEPHRINE 1.7 ML CTR ONE (16:33)
[2021-12-22] MEDS ORDERED: PROPOFOL IV EMULSION 10 MG/ML 20 ML VIAL IV ONE (17:01)
[2021-12-22] MEDS ORDERED: SUCCINYLCHOLINE CHLORIDE 20 MG/ML 10 ML VIAL IV ONE (17:03)
[2021-12-22] MEDS ORDERED: MIDAZOLAM HCL 1 MG/ML 2ML VIAL ONE (17:03)
[2021-12-22] MEDS ORDERED: fentaNYL citrate 100 MCG/2 ML VIAL ONE ×2 (17:03→18:02)
[2021-12-22] MEDS ORDERED: CHLORHEXIDINE GLUCONATE 0.12% 480 ML ONE (17:18)
--- NOTE | 2021-12-22 17:34 | History & Physical Bridge Note ---
Date of Service December 22, 2021 History & Physical Bridge Note I have examined the patient, reviewed the History & Physical and in the interval since the performance of the History & Physical I have noted the following changes of clinical significance: no changes noted OK for surgery this PM We will plan IV antibiotics for 24 hrs after the I and D
[2021-12-22] MEDS ORDERED: ONDANSETRON INJ 2 MG/ML 2 ML VIAL IV PRN (18:44)
[2021-12-22] MEDS ORDERED: ATROPINE SULFATE 0.1 MG/ML 10ML SYR IV PRN (18:44)
[2021-12-22] MEDS ORDERED: PROMETHAZINE HCL 12.5 MG in SODIUM CHLORIDE 0.9% 50 ML IV PRN (18:44)
[2021-12-22] MEDS ORDERED: fentaNYL citrate 100 MCG/2 ML VIAL IV PRN (18:44)
[2021-12-22] MEDS ORDERED: FLUMAZENIL 0.1 MG/1 ML 10 ML VIAL IV PRN (18:44)
[2021-12-22] MEDS ORDERED: HYDROmorphone INJ 1 MG/ML SYRINGE IV PRN (18:44)
[2021-12-22] MEDS ORDERED: ePHEDrine sulfate 50 MG/ML AMP IV PRN (18:44)
[2021-12-22] MEDS ORDERED: NALOXONE HCL 0.4 MG/1 ML VIAL/CARP IV PRN (18:44)
--- NOTE | 2021-12-22 18:55 | Operative Report ---
PG Post Operative Report Pre & Post Diagnosis Operation Date: 12/22/21 10:40 Pre-Op Diagnosis: facial infection, dental abscess Post-Op Diagnosis: facial infection, dental abscess I identified the patient and participated in the time-out.: Yes Procedure Operation Date: 12/22/21 10:40 Actual Procedures p Left Facial Infection Incision and Drainage(Not Applicable) - Rashaad Almeida DMD s Dental Extraction #17, #18, #31(Not Applicable) - Rashaad Almeida DMD Surgeon Rashaad Almeida, MANINDER [employer]cre[employer] none Estimated Blood Loss 4 Findings Consistent with Post-Op Diagnosis Acute swelling left submandibular space, subperiosteal space. Grossly infected # 17,18,31 Specimens Culture of pus left jaw Drains none Anesthesia Type General Complications none Indications acute infection not responding to oral antibiotics Description of Procedure Problem: Pain,swelling located---lower left jaw and submandibular area, local infection lower right Finding: There is a carious, fractured and infected tooth at site#:17,18,31 Plan: Surgical removal of the following tooth/teeth: 17,18,and 31 CPT 53696 ICD 10 M27.2 Procedure report: After a complete H&P/ vital signs and oral exam was completed the patient was ready for the surgical procedure. Informed consent was reviewed and the consent form was signed. I gave Blue time to discuss any questions and if I explained the surgery that I will be performing to her understanding. The patient was positioned and light adjusted, Peridex mouth rinse was used and a final time out was taken to review the correct procedure, once agreed the local anesthesia was given in the standard fashion for the area of surgery. Actual Procedures p Incision and Drainage left Submandibular Abscess and subperiosteal space abscess ; Removal of Teeth 17,18,32 Once cleared for surgery general anesthesia was achieved, the eyes were protected by the anesthesia dept criteria. A time out was take for patient ID, antibiotics, equipment and position verification once all agreed the procedure began. Local Anesthesia: Using 1.8 cc Xylocaine 2% with 1/100,000 epi as a block profound anesthesia was obtained within 5-10 minutes A throat pack was placed after the oral cavity was irrigated with saline. Once a surgical level of anesthesia was obtained and the local anesthesia was given time for the blocks the surgery was started. I turned my attention to the infection which was located in the left submandibular and subperiosteal spaces. The tongue was elevated and there was also swelling associated with tooth #17,18 and somewhat with # 31 ( see CT scan report) Incision and Drainage CPT 08682 ICD 10 M27.2 Using 1.8 cc Xylocaine 2% with 1/100,000 epi as a block profound anesthesia was obtained within 5-10 minutes Using a 15 blade an incision was made medial to the alveolar ridge and lateral to the check. Once the incision was made a lot of pus extruded from the site. This drainage w as cultured for anaerobic and aerobic bacteria. A curved hemostat was carefully placed into the infected space along the lateral l side of the lower jaw and into the submandibular and subperiosteal spaces. Some further drainage was now allowed to escape. I palpated the chin and submental area and no further drainage was expressed. The area was irrigated with at least 100 ml of NS solution. I now turned my attention to remove the # 17,18 and 31 tooth. These were a standard surgical extractions Lower # 17,18 The full thick Muco-periosteal flap was made on the facial aspect from # 17-21. The flap was reflected to expose the the subperiosteal space the bone adjacent to #17 and 18. The grossly infected teeth were removed. The 17 and 18 teeth were removed with a 301 elevator, the mental nerve was intact, there was a large amount of granulation tissue on the apex and some more pus that was expressed. A chromic suture was placed Lower # 31 The full thick Muco-periosteal flap was made on the facial around # 31 . The flap was reflected to expose the bone adjacent. The grossly infected tooth was removed. A 301 elevator was used to remove this tooth, the mental nerve was intact, there was a large amount of granulation tissue on the apex and some more pus that was expressed. A chromic suture was placed At this time I inspected the site: bleeding was controlled, instructions given by nursing staff (diet, oral care, use of gauze, follow up, pain management, activity, no driving if narcotics were Rx.) I removed the throat pack and suctioned the throat. Bilateral gauze pressure dressings were placed. All instrument and sponge count was correct. the patient was allowed to awake from the anesthesia. Once full awake the ane sthesia tube was removed and the patient was taken to the recovery room with all vital sign stable. The patient tolerated the surgery very well. I will follow the patient in my office, Rx and instructions will be given upon discharge. Surgeon: Rashaad Almeida [facility] Oral Maxillofacial Surgery [facility] I attest to the content of the Intraoperative Record and any orders documented therein. Any exceptions are noted below.
--- NOTE | 2021-12-22 19:17 | Anesthesiology Progress Note ---
Date of Service December 22, 2021 Anesthesia Post Procedure Vital Signs Vital Signs: Temp Pulse Pulse Resp BP Pulse Ox O2 Del Method 12/22/21 19:10 100 H 20 139/83 99 Room Air 12/22/21 19:00 101 H 17 130/89 94 Room Air 12/22/21 18:50 120 H 28 H 124/91 95 Room Air 12/22/21 18:41 36.1 C L 112 H 13 144/90 H 97 Room Air 12/22/21 16:30 37.3 C 90 19 148/96 H 100 Room Air 12/22/21 15:16 37 C 76 18 134/85 96 Room Air 12/22/21 07:00 Room Air 12/22/21 07:10 36.8 C 83 16 111/76 96 Room Air 12/21/21 22:05 36.5 C 83 16 110/70 97 Room Air Pain Intensity Left Lower Jaw: Pain Intensity: 3 Transfer of Care Handoff Completed per policy Notes Mental Status: alert / awake / arousable Patient Amnestic to Procedure: Yes Nausea / Vomiting: adequately controlled Pain: adequately controlled Airway Patency, RR, SpO2: stable & adequate BP & HR: stable & adequate Hydration State: stable & adequate Anesthetic Complications: no major complications apparent
[2021-12-22] MEDS ORDERED: ACETAMINOPHEN 1,000 MG/100 ML VIAL IV PRN (20:21)
[2021-12-23] MEDS: AMPICILLIN/SULBACTAM SOD 3,000 MG in 0.9 % SODIUM CHLORIDE 100 ML IV SCH ×3 (02:12→14:52)
[2021-12-23] MEDS: SERTRALINE HCL 50 MG TABLET PO SCH (08:18)
--- NOTE | 2021-12-23 09:08 | Oral/Maxillofacial Progress Nt ---
Date of Service December 23, 2021 Assessment & Plan Admission and Anticipated Discharge Date Admission Date: December 22, 2021 Subjective I called Blue at 9 am. Her pain is manageable,swelling has decreased and she is feeling better. Given the large amount of PUS that was drained I imagine she will be seeing major improvement over the next 12-18 hours. We discussed post op care, diet, oral care. I will see her on SaturdayJan 09 at 2 pm ( my office) I will e mail the prescriptions=Augmentin, Vicodin and Peridex to her pharmacy. From an ORAL SURGERY point of view she may be discharged after the next dose of her antibiotic. She can then start the oral antibiotics this evening. Overall great response from I&D and extraction of the infected abscessed teeth. Results & Data ([facility]) Vital Signs (Past 12 Hours) Vital Signs Temp Pulse Resp BP Pulse Ox O2 Del Method 12/23/21 07:36 37 C 89 18 119/83 97 Room Air 12/23/21 02:19 37.3 C 87 16 120/79 96 Room Air 12/22/21 22:38 37.2 C 79 16 131/83 94 Room Air 12/22/21 21:31 76 17 124/75 94 Room Air PG Care Time/CCT Total # of Minutes Spent Total Time Spent with Patient: Total time spent is greater than 50% in coordination of care (as documented) at patient's floor/unit and/or counseling patient: Coding Level of Care Code None
[2021-12-23] MEDS: PANTOprazole 40 MG in SYRINGE 0 ML IV SCH (10:50)
--- NOTE | 2021-12-23 11:05 | Discharge Summary ---
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 She has had poor dental hygiene most of her life, but has started seeing the hygeinist in the past 2 years. She previously did not floss or brush her teeth regularly, but has in the past year. She states that she is from the and went through the public dental system and due to delays has not yet had her dental problems treated.. She has had 2 prior infections in the same left lower posterior tooth and has been on waitlist for surgery. She states that her wisdom teeth are also impacted. Her acute symptoms of jaw and dental pain of that tooth started 3 days ago. She saw [facility] and [facility] this morning and was prescribed penicillin. She was told there might be possible abscess. Her symptoms significantly worsened this afternoon so she went to the ED. She has had more notable subjective fever (had milder on previous days) and odynophagia today. Denies issues w/ secretions. She has been taking max dose tylenol and ibuprofen (3600mg daily) for the past 3 days. She has also developed some epigastric abd pain that she attributes to taking the nsaids on an empty stomach. ED course: Unasyn, dexamethasone 10mg IV, toradol 15mg IV. NSS 2L. wbc 11.67. Na 135. covid neg. ct soft tissue neck showing peridontal disease, left facial cellulitis (w/o abscess) and prominent left cervical chain lymph nodes . Vitals reviewed. HR 101. afebrile. Principal Diagnosis Dental infection with facial cellulitis and abscess Discharge Exam GENERAL: 21 yo Well-developed, well-nourished WF. NAD. HENT: Moist mucous membranes. Approx 4 cm area of swelling and erythema on left side of mandible. TTP. Poor dentition. LUNGS: Clear to auscultation bilaterally. No accessory muscle use. No W/R/R. CARDIOVASCULAR: Regular rate and rhythm. ABDOMEN: Soft, non-tender and non-distended. BS normoactive x 4 quad. EXTREMITIES: No edema. Non-tender. Peripheral pulses +2/4. NEUROLOGIC: A&O x3. PSYCHIATRIC: Cooperative. Appropriate mood and affect. SKIN: Warm, dry, intact. No rashes or lesions. Discharge Data Allergies Allergy/AdvReac Type Severity Reaction Status Date / Time No Known Allergies Allergy Unverified 12/20/21 22:10 Consultations 12/20/21 22:00 ED Decision to Admit Stat 12/21/21 06:00 Consult Oromaxillofacial Surgery Routine Procedures Performed Operation Date: 12/22/21 10:40 Actual Procedures p Left Facial Infection Incision and Drainage(Not Applicable) - Rashaad Almeida DMD s Dental Extraction #17, #18, #31(Not Applicable) - Rashaad Almeida DMD Ordered Studies Soft Tissue Neck CT 12/20/21 20:28 CT SCAN OF THE NECK WITH IV CONTRAST CLINICAL HISTORY: Left facial pain radiating into the neck. Jaw swelling. COMPARISON STUDY: No priors. TECHNIQUE: Following the IV administration of 83 cc of Optiray 350, CT scan of the soft tissues of the neck was performed from the skull base to the upper chest. Images are reviewed in the axial, sagittal, and coronal planes. IV contrast was administered without complication. A dose lowering technique was utilized adhering to the principles of ALARA. CT DOSE: 552.59 mGy.cm FINDINGS: Pharynx: The nasopharynx, oropharynx, and laryngeal pharynx are normal in appearance. The pharyngeal airway is widely patent. There is no evidence of mass lesion. The vocal cords are symmetric. The parapharyngeal fat is well maintained. The prevertebral/retropharyngeal soft tissues are within normal limits. The epiglottis is normal. Lymphadenopathy: Prominent left cervical chain lymph nodes are likely reactive Thyroid: Normal in size and attenuation. Salivary glands: The parotid and submandibular glands are within normal limits. Brain parenchyma: The visualized brain parenchyma at the skull base is normal in appearance. Vascular structures: Unremarkable. Skeletal structures: Imaged portions of the calvarium at the skull base are within normal limits. The cervical spine appears intact. Sinuses and mastoids: The paranasal sinuses are clear. The mastoid air cells are well pneumatized. Orbits: The bony limits are intact. Orbital contents are normal as visualized. Lung apices: Visualized apical lung parenchyma is clear. Dentition: There are large dental caries involving the bilateral mandibular molars. A large apical lucency is seen involving the most posterior left mandibular molar. There is significant superficial and deep soft tissue inflammation seen overlying the left aspect of the mandible consistent with cellulitis. This extends inferiorly into the upper neck. No organized fluid collection is seen to indicate abscess. IMPRESSION: 1. Periodontal disease as above. Follow-up with dentistry is recommended. 2. There is evidence of left facial cellulitis. No organized fluid collection is seen to indicate abscess. 3. Prominent left cervical chain lymph nodes are likely reactive. ACT 112: Negative or not required by law. Electronically signed by: Fahad Wren M.D. 12/20/2021 9:04 PM Hospital Course (1) Cellulitis of face: 21 y/o female w/ self-reported PMHx of IBS, mild autism spectrum disorder, anxiety, and enamel hypoplasia who presents with left lower tooth infection w/ resultant facial cellulitis - continue IV unasyn - Initially made NPO and ordered mIVF - s/p 1 dose of Decadron; not continued - consulted [facility] - seen by Dr. Almeida on 12/21, offered extraction but pt declined, diet ordered - IV tylenol for pain, avoid nsaids - This AM, pt reports worsening swelling, now after speaking to mother, is willing to have extraction - Spoke w/ Dr. Almeida and he performed procedure 12/22 which included extraction of infected teeth with I&D of underlying abscess - Pt will be d/c'd on Peridex, Augmentin, and pain meds as ordered by Dr. Almeida - Follow up with Dr. Almeida as scheduled Jan 11 (2) Dental caries: - as above (3) Anxiety: - hold home Zoloft while NPO (4) Epigastric abdominal pain: - likely 2/2 max dose nsaids on empty stomach x several days - given short duration of the use, less likely from ulcer - Can use OTC PRN (Pepcid/omeprazole) as directed, avoid frequent use of nsaids Plan Medically and hemodynamically stable for discharge home today with outpatient follow up as outlined above. Plan d/w Dr. Adames who has also seen and evaluated this patient and agrees with aforementioned. Total Time Total Time Spent Total Time Spent (In Minutes): >30 minutes Discharge Plan Discharge Items Patient Disposition: Home - Self-Care Reason For Visit: DENTAL INFECTION FACIAL CELLULITIS Discharge Diagnosis: deep infection of submandibular and subperiosteal space secondary to infected teeth 17,18,31 Condition on Discharge: Good Activity: Resume your previous activity Lifting: Gradually increase as tolerated Bathing: No limitations Exercise/Sports: Gradually increase as tolerated Driving/Machine Use: Resume 1 day after discharge Weightbearing: Full weightbearing Non-emergency contact: Surgeon Call non-emergency contact if: your temperature is above 101.5, your wound has increased redness, your wound has increased drainage and your wound pain has increased Follow-up/Referrals: Rashaad Almeida, MANINDER [Physician] - 01/09/22 2:00 pm [facility] [Primary Care Provider] - Diet: Full liquid and Clear liquid Diet Texture: Easy to Chew Diet Comment: start with Clear--Full -- Dental soft Addtl Attending Provider Instructions: ADDITIONAL ACTIVITY RECOMMENDATIONS: * [place] teeth after every meal. It is very important to keep your mouth clean to prevent infection. * Starting tonight rinse with the Peridex as directed then 2 x a day * it is very important to keep well hydrated, this prevents fever and possible dry socket pain * start the oral antibiotics this evening then 1 every 12 hrs until gone SPECIAL CARE INSTRUCTIONS: *It is not uncommon that between day 2-4 that your swelling will be at its worst this is very normal, do not be alarmed. * After 36 hours, apply heat (hot water bottle or heating pad) for the next two days, as often as possible. * Tomorrow start rinsing your mouth with 1/2 teaspoon salt in 8 ounces warm water. This rinse should be used every 4-6 hours. * You may experience slight nausea. To prevent this, never take your medication on an empty stomach. If nauseated, take small sips of cody benoit until you feel better; then you may start on applesauce and toast. * Some swelling is common. It should gradually decrease within 4-5 days. * A certain amount of bleeding is to be expected. It is often possible to control mild oozing by placing folded gauze over the area and biting down for 30 minutes. If you are unable to control excessive bleeding, call Dr Almeida at [phone] * You may experience some discomfort for a few days. If pain or swelling increases, Call Dr Almeida * Return to the office for a follow up check up on: JANUARY 09 AT 2 PM * office address--[address] phone # [phone] Pending Studies at Discharge: Yes Studies:: C AND S RESULTS (I will follow and adjust antibiotics as needed ) Stand-Alone Forms: [facility], Work/School Release, Smoking Cessation Medications and DC Order Prescriptions: Continued amoxicillin-pot clavulanate 875-125 mg tablet 1 tab PO Q12H Qty: 20 0RF hydrocodone-acetaminophen 5-325 mg tablet 1 tab PO Q4H PRN (Reason: pain) Qty: 14 0RF ondansetron HCl 8 mg tablet 8 mg PO Q8H PRN (Reason: nausea and vomiting) Qty: 10 0RF naproxen sodium 550 mg tablet 550 mg PO BID PRN (Reason: Pain) ferrous sulfate [iron] 325 mg (65 mg iron) Tablet 0 mg PO DAILY zinc 25 mg Tablet 0 mg PO DAILY sertraline [Zoloft] 50 mg Tablet 50 mg PO DAILY cholecalciferol (vitamin D3) [Vitamin D3] 25 mcg (1,000 unit) Capsule 0 mcg PO DAILY magnesium 200 mg Tablet 0 mg PO DAILY Discontinued penicillin V potassium 500 mg tablet 500 mg PO TID Discharge Orders: Discharge Order (Routine); Ordered 12/23/21 Ordered By: Betty Warren/Other Patient Handouts: Cellulitis Dc, [place] Teeth: Removal, [place] Teeth Surgery- Your Recovery, ED Cellulitis, ED Cellulitis, Facial, Dental Abscess Facial Cellulitis Admission Data Admit Date/Time: 12/22/21 10:45 Attending Provider: Stephane Flanagan Admit Provider: Rusty Powell Primary Care Provider: [facility] Other Providers: Marco Taylor ; Rashaad Almeida Supervising Physician Co-Signing Physician Notes Patient seen and examined, chart reviewed, case discussed with Betty Mijares PA-C and I agree with the assessment and plan as above except as otherwise noted Labs and images reviewed Patient seen at the bedside. Reports significant improvement in symptoms and pain. Is able to eat breakfast normally this morning and drink liquids normally. No airway involvement. No bleeding/drainage since left neck. Continues with some left lower jaw swelling. Lungs are clear, heart rate is regular. Skin is warm and dry. Patient has Peridex, antibiotics and scheduled follow-up with oral maxillofacial surgery. Feels comfortable with return home. Discussed return precautions, including any worsening of breathing/swelling/recurrent fever/chills patient agreeable to these. No additional questions or concerns at bedside. Total time spentWith patient in room approximately 25 minutes. Coding Level of Care Code D/C DAY MANAGEMENT >30 MINS Diagnoses Cellulitis of face L03.211 Dental caries K02.9 Anxiety F41.9 Epigastric abdominal pain R10.13
[2021-12-25 15:53] LABS: Hematocrit (blood only) 35.9 % (34.1-44.9); Hemoglobin 11.8 g/dl (12.0-16.0); Mean Platelet Volume 9.8 fL (9.4-12.3); Red Blood Count 4.42 M/uL (3.93-5.22)
== END 2021-12-23 16:44 | disposition home or self-care (01) | DRG 580 ==
LOC: EDSEX 19:58 → 3W 19:58 → ED 19:58 → SUATTDRO 23:57 → 3W 12-21 00:36